=== PATIENT | male | born 1950 | race Two or more races ===

== ENCOUNTER 2020-02-06 05:48 | Emergency (ER) | payer OTHER ==
[~2020-02-06] VITALS: Ht 175.3 cm; Wt 117.9 kg
[2020-02-06] MEDS ORDERED: NEURONTIN300 MG PO (07:07)
[2020-02-06] MEDS ORDERED: TOPROL XL50 M1 PO (07:07)
== END 2020-02-06 10:43 | disposition home or self-care (01) ==
LOC: ER 05:48
DX: R55 Syncope and collapse (principal)

== ENCOUNTER 2020-04-02 10:10 | Emergency (ER) | payer OTHER ==
[~2020-04-02] VITALS: Ht 175.3 cm; Wt 107.0 kg
[~2020-04-02 10:10] MED LIST: NEURONTIN300 MG PO; TOPROL XL50 M1 PO
[2020-04-02] MEDS ORDERED: NORVASC5 MG PO (10:52)
[2020-04-02] MEDS ORDERED: ASPIRIN EC81 MG PO (10:53)
[2020-04-02] MEDS ORDERED: LIPITOR20 MG PO (10:53)
[2020-04-02] MEDS ORDERED: ZYRTEC10 MG PO (10:53)
[2020-04-02] MEDS ORDERED: VITAMIN B-121000 MC4 PO (10:54)
[2020-04-02] MEDS ORDERED: CYCLOBENZAPRINE10 MG PO (10:55)
[2020-04-02] MEDS ORDERED: DICLOFENAC SODIU5 ML OP (10:55)
[2020-04-02] MEDS ORDERED: LASIX20 MG PO (10:57)
[2020-04-02] MEDS ORDERED: FLONASE16 GM (10:57)
[2020-04-02] MEDS ORDERED: TRILEPTAL300 MG (10:58)
[2020-04-02] MEDS ORDERED: NAPR500T14 PO (10:58)
[2020-04-02] MEDS ORDERED: AVAPRO300 MG PO (10:58)
[2020-04-02] MEDS ORDERED: HYDRODIURIL12.5 MG PO (10:58)
[2020-04-02] MEDS ORDERED: QUETIAPINE FUM400 M1 (10:59)
[2020-04-02] MEDS ORDERED: KLOR-CON M2020 MEQ PO (10:59)
[2020-04-02] MEDS ORDERED: REVATIO20 MG PO (11:00)
[2020-04-02] MEDS ORDERED: DETROL2 MG PO (11:00)
[2020-04-02] MEDS ORDERED: ZANTAC25 MG/1 ML (11:00)
[2020-04-02] MEDS ORDERED: VITAMIN D32400 UNIT/ (11:01)
== END 2020-04-02 13:41 | disposition home or self-care (01) ==
LOC: ER 10:10
DX: R42 Dizziness and giddiness (principal)

== ENCOUNTER 2020-05-20 11:29 | Emergency (ER) | payer OTHER ==
[~2020-05-20] VITALS: Ht 175.3 cm; Wt 107.0 kg
[~2020-05-20 11:29] MED LIST changes: +ASPIRIN EC81 MG PO; +AVAPRO300 MG PO; +CYCLOBENZAPRINE10 MG PO; +DETROL2 MG PO; +DICLOFENAC SODIU5 ML OP; +FLONASE16 GM; +HYDRODIURIL12.5 MG PO; +KLOR-CON M2020 MEQ PO; +LASIX20 MG PO; +LIPITOR20 MG PO; +NAPR500T14 PO; +NORVASC5 MG PO; +QUETIAPINE FUM400 M1; +REVATIO20 MG PO; +TRILEPTAL300 MG; +VITAMIN B-121000 MC4 PO; +VITAMIN D32400 UNIT/; +ZANTAC25 MG/1 ML; +ZYRTEC10 MG PO
[2020-05-20] MEDS ORDERED: ARICEPT10 MG (11:40)
[2020-05-20] MEDS ORDERED: HYDROCHLOROTH12.5 MG (11:44)
[2020-05-20] MEDS ORDERED: VOLTAREN-XR100 MG PO (17:03)
[2020-05-20] MEDS ORDERED: ULTRAM50 MG PO (17:03)
[2020-05-20] MEDS ORDERED: SKELAXIN800 MG PO (17:03)
== END 2020-05-20 18:32 | disposition home or self-care (01) ==
LOC: ER 11:29
DX: K57.32 Diverticulitis of large intestine without perforation or abscess without bleeding (principal); K76.0 Fatty (change of) liver, not elsewhere classified; Z03.818 Encounter for observation for suspected exposure to other biological agents ruled out; R10.32 Left lower quadrant pain; M54.5 Low back pain

== ENCOUNTER → 2020-09-07 | Outpatient (CLI) | payer OTHER ==
[~2020-09-07] MED LIST changes: +ARICEPT10 MG; +HYDROCHLOROTH12.5 MG; +SKELAXIN800 MG PO; +ULTRAM50 MG PO; +VOLTAREN-XR100 MG PO
== END | disposition home or self-care (01) ==
LOC: RAD 13:41
PROVIDERS: ATTEND Internal Medicine Cardiovascular Disease
DX: R10.84 Generalized abdominal pain (principal)

== ENCOUNTER → 2021-03-11 08:08 | Outpatient (CLI) | payer OTHER ==
[~2021-03-11 08:08] MED LIST changes: +AMLODIP; +ATORVASTATIN CA20 MG PO; +CYMBALTA60 MG PO; +HORIZANT300 MG PO; +IBERSARTAN PO; +INDAPAMIDE2.5 MG PO; +TOPROL XL25 M1 PO
== END | disposition home or self-care (01) ==
LOC: LAB 08:08
PROVIDERS: ATTEND Orthopaedic Surgery
DX: D64.89 Other specified anemias (principal); E88.89 Other specified metabolic disorders; D68.8 Other specified coagulation defects; N39.0 Urinary tract infection, site not specified; Z22.322 Carrier or suspected carrier of Methicillin resistant Staphylococcus aureus; I49.8 Other specified cardiac arrhythmias; I10 Essential (primary) hypertension; Z76.89 Persons encountering health services in other specified circumstances

== ENCOUNTER 2021-03-16 12:01 | Outpatient (CLI) | payer OTHER ==
[~2021-03-16 12:01] MED LIST changes: -AMLODIP; -ATORVASTATIN CA20 MG PO; -CYMBALTA60 MG PO; -HORIZANT300 MG PO; -IBERSARTAN PO; -INDAPAMIDE2.5 MG PO; -TOPROL XL25 M1 PO
[2021-03-29] MEDS ORDERED: TOPROL XL25 M1 PO (08:17)
[2021-03-29] MEDS ORDERED: IBERSARTAN PO (08:18)
[2021-03-29] MEDS ORDERED: INDAPAMIDE2.5 MG PO ×2 (08:18→08:20)
[2021-03-29] MEDS ORDERED: ATORVASTATIN CA20 MG PO (08:19)
[2021-03-29] MEDS ORDERED: HORIZANT300 MG PO (08:19)
[2021-03-29] MEDS ORDERED: CYMBALTA60 MG PO (08:20)
[2021-03-29] MEDS ORDERED: AMLODIP (08:21)
== END 2021-03-16 12:06 | disposition home or self-care (01) ==
LOC: RAD 12:01
PROVIDERS: ATTEND Orthopaedic Surgery
DX: M75.112 Incomplete rotator cuff tear or rupture of left shoulder, not specified as traumatic (principal)

== ENCOUNTER → 2021-03-29 | Day surgery (SDC) | payer OTHER ==
[~2021-03-29] MED LIST changes: +AMLODIP; +ATORVASTATIN CA20 MG PO; +CYMBALTA60 MG PO; +HORIZANT300 MG PO; +IBERSARTAN PO; +INDAPAMIDE2.5 MG PO; +TOPROL XL25 M1 PO
== END | disposition home or self-care (01) ==
LOC: ADM 03-23 09:00 → CIR.AMB 09:00
PROVIDERS: ATTEND Orthopaedic Surgery
DX: M75.112 Incomplete rotator cuff tear or rupture of left shoulder, not specified as traumatic (principal); M65.812 Other synovitis and tenosynovitis, left shoulder; Z20.822 Contact with and (suspected) exposure to COVID-19